=== PATIENT | female | born 1990 | race African-American/Black ===

== ENCOUNTER → 2018-07-20 | Outpatient (CLI) | payer MEDICARE, BC ==
--- NOTE | 2018-07-20 13:29 | US ---
EXAMINATION TYPE: Transabdominal DATE OF EXAM: 01/16/18 COMPARISON: NONE CLINICAL HISTORY: O30.91 Multiple gestation, first trimester, Z36.... viability EXAM PERFORMED: Transvaginal (TV) and Transabdominal (TA) EXAM MEASUREMENTS: GESTATIONAL AGE / DATING Physician Established: Not yet established Dates by LMP: (7 weeks/4 days) EDC: 03/04/19 Dates by First Scan: no prior done here Dates by Current Scan for: (7 weeks/3 days) EDC: 03/05/19 MATERNAL ANATOMY Uterus: 9.9 x 5.6 x 7.7cm Right Ovary: 2.6 x 1.0 x 1.4cm Left Ovary: 3.7 x 2.4 x 2.5cm Post CDS / Adnexa: appears wnl Presence of free fluid: no Presence of corpus luteal cyst: yes, hypoechoic area left ovary = 2.1 x 1.9 x 1.7cm GESTATION / SURVEY CRL: 1.2cm (7 weeks/3 days) Yolk Sac (normal less than 6mm): 0.3cm Heart Rate: 141 bpm Rhythm: Normal IUP: Viable IUP Date of LMP: 05/28/18 Beta HcG (if available): Not available at this time single viable IUP 7wks/3days with CRIS of 03/05/19. Corpus luteum left ovary IMPRESSION: Single viable intrauterine of 7 weeks 3 days with an EDC of 03/05/2019. Heart rate is 141 bp m.
[2018-07-20 14:13] LABS: HCT 37.4 % (34.0-46.0); HGB 11.9 gm/dL (11.4-16.0); MCH 32.7 pg (25.0-35.0); MCHC 31.7 g/dL (31.0-37.0); MCV 103.3 fL (80.0-100.0); Macrocytosis Moderate; Mean Platelet Volume 10.7; Platelet Count 205 k/uL (150-450); RBC 3.62 m/uL (3.80-5.40); RDW 15.4 % (11.5-15.5); WBC 7.4 k/uL (3.8-10.6)
[2018-07-20 15:55] LABS: Glucose 85 mg/dL (74-99)
[2018-07-20 20:42] LABS: HIV 1 AB Non-Reactive (Non-Reactive); HIV AB P24 Non-Reactive (Non-Reactive); HIV P24 AG Non-Reactive (Non-Reactive)
== END | disposition home or self-care (01) ==
LOC: RADUSWWP 12:30
PROVIDERS: ATTEND Obstetrics & Gynecology
DX: O30.91 Multiple gestation, unspecified, first trimester (principal); O26.811 Pregnancy related exhaustion and fatigue, first trimester; Z3A.01 Less than 8 weeks gestation of pregnancy
CPT/HCPCS: 36415; 76801; 76817; 82565; 82947; 85027; 86762; 86780; 86850; 86900; 86901; 87340; 87390

== ENCOUNTER 2018-09-10 23:11 | Emergency (ER) | payer MEDICARE, BC ==
[2018-09-11 01:49] LABS: Appearance,Urine Cloudy (Clear); Bilirubin,Urine Negative (Negative); Blood,Urine Negative (Negative); Color,Urine Yellow; Glucose,Urine (UA) Negative (Negative); Ketones,Urine Negative (Negative); Leukocyte Esterase,Urine Small (Negative); Mucus,Urine Rare /hpf; Nitrite,Urine Negative (Negative); PH, Urine 5.5 (5.0-8.0); Protein,Urine Negative (Negative); RBC,Urine 1 /hpf (0-5); Specific Gravity,Urine 1.018 (1.001-1.035); Squamous Epithelial Cell,Urine 4 /hpf (0-4); Urobilinogen,Urine <2.0 mg/dL (<2.0)
[2018-09-11] MEDS ORDERED: CEPHALEXIN 500MG STARTER PACK 4 CAP BTL PO STA (03:18)
--- NOTE | 2018-09-11 03:21 | ED ---
Back Pain HPI - General Chief Complaint: Back Pain/Injury Stated Complaint: back pain, 15 weeks preg Time Seen by Provider: 09/11/18 01:23 Source: patient Limitations: no limitations - History of Present Illness MD Complaint: back pain -: hour(s) Similar Symptoms Previously: No Place: home Radiation: none Severity: moderate Quality: sharp Consistency: now resolved Improves With: none Worsens With: other (Standing) Context: bending Associated Symptoms: denies other symptoms - Related Data Previous Rx's Medication Instructions Recorded Ibuprofen [Motrin] 600 mg PO Q8HR PRN #20 tab 05/24/16 Lidocaine Viscous [Xylocaine 5 ml PO Q3HR PRN #100 ml 05/24/16 Viscous 2%] Cephalexin [Keflex] 500 mg PO Q6HR #28 cap 09/11/18 Allergies Allergy/AdvReac Type Severity Reaction Status Date / Time amoxicillin trihydrate Allergy Rash/Hives Verified 09/10/18 23:22 [From Augmentin] Penicillins Allergy Anaphylaxis Verified 09/10/18 23:22 potassium clavulanate Allergy Rash/Hives Verified 09/10/18 23:22 [From Augmentin] Review of Systems ROS Statement: Those systems with pertinent positive or pertinent negative responses have been documented in the HPI. ROS Other: All systems not noted in ROS Statement are negative. Constitutional: Denies: fever, chills, weakness Respiratory: Denies: cough, dyspnea Cardiovascular: Denies: chest pain, palpitations, edema Gastrointestinal: Reports: abdominal pain (Cramping, resolved). Denies: nausea , vomiting, diarrhea, constipation Genitourinary: Reports: frequency. Denies: dysuria, hematuria Musculoskeletal: Reports: as per HPI, back pain Skin: Denies: rash Neurological: Denies: headache, weakness, numbness Past Medical History Past Medical History: No Reported History History of Any Multi-Drug Resistant Organisms: MRSA Date of last positivie culture/infection: 2011 MDRO Source:: left hip Past Surgical History: No Surgical Hx Reported Past Psychological History: No Psychological Hx Reported Smoking Status: Former smoker Past Alcohol Use History: Occasional Past Drug Use History: None Reported General Exam Limitations: no limitations General appearance: alert, in no apparent distress Head exam: Present: atraumatic, normocephalic Eye exam: Present: normal appearance. Absent: scleral icterus, conjunctival injection Neck exam: Present: normal inspection, full ROM Respiratory exam: Present: normal lung sounds bilaterally. Absent: respiratory distress, wheezes, rales, rhonchi, stridor Cardiovascular Exam: Present: regular rate, normal rhythm, normal heart sounds. Absent: systolic murmur, diastolic murmur, rubs, gallop GI/Abdominal exam: Present: soft. Absent: distended, tenderness, guarding, rebound, rigid, pulsatile mass Extremities exam: Present: normal inspection, normal capillary refill. Absent: pedal edema, calf tenderness Back exam: Present: normal inspection, paraspinal tenderness. Absent: CVA tenderness (R), CVA tenderness (L), vertebral tenderness Neurological exam: Present: alert, normal gait Skin exam: Present: warm, dry, intact, normal color. Absent: rash Course Vital Signs 09/10/18 09/11/18 23:20 03:35 Temperature 98.5 F 97.9 F Pulse Rate 79 81 Respiratory 18 19 Rate Blood Pressure 111/73 106/66 O2 Sat by Pulse 99 99 Oximetry Medical Decision Making - Lab Data Lab Results 09/11/18 Range/Units 01:30 Urine Color Yellow Urine Appearance Cloudy H (Clear) Urine pH 5.5 (5.0-8.0) Ur Specific Brandon 1.018 (1.001-1.035) Urine Protein Negative (Negative) Urine Glucose (UA) Negative (Negative) Urine Ketones Negative (Negative) Urine Blood Negative (Negative) Urine Nitrite Negative (Negative) Urine Bilirubin Negative (Negative) Urine Urobilinogen <2.0 (<2.0) mg/dL Ur Leukocyte Esterase Small H (Negative) Urine RBC 1 (0-5) /hpf Urine WBC 13 H (0-5) /hpf Ur Squamous Epith Cells 4 (0-4) /hpf Urine Mucus Rare H (None) /hpf Disposition Clinical Impression: Urinary tract infection affecting , Back pain Disposition: HOME SELF-CARE Condition: Good Instructions: Acute Low Back Pain (ED), Urinary Tract Infection in ( ED) Prescriptions: Cephalexin [Keflex] 500 mg PO Q6HR #28 cap Is patient prescribed a controlled substance at d/c from ED?: No Referrals: Radha Wiley MD [Primary Care Provider] - 1-2 days
[2018-09-11 03:42] VITALS: BP 106/66; PULSE 81; RESP 19; TEMP 97.9
== END 2018-09-11 03:36 | disposition home or self-care (01) ==
LOC: EC 23:11
DX: O23.42 Unspecified infection of urinary tract in pregnancy, second trimester (principal); O26.892 Other specified pregnancy related conditions, second trimester; M54.9 Dorsalgia, unspecified; Z3A.15 15 weeks gestation of pregnancy; Z87.891 Personal history of nicotine dependence; Z88.0 Allergy status to penicillin
CPT/HCPCS: 81001; 87086; 99283

== ENCOUNTER → 2019-01-16 | Outpatient (CLI) | payer MEDICARE ==
--- NOTE | 2019-01-16 10:41 | US ---
EXAMINATION TYPE: US OB limited DATE OF EXAM: 01/16/2019 COMPARISON: US 2018 CLINICAL HISTORY: O36.8390 Vaiable decelerations anteparium. OB limited for XOCHILT only EXAM PERFORMED: Transabdominal (TA) GESTATIONAL AGE / DATING Physician Established: (33 weeks/2 days) EDC: 03/04/2019 No growth performed on today?s study per ordering physician SURVEY XOCHILT: 14.0 cm Normal HEART RATE: 164 bpm RHYTHM: Normal IMPRESSION: Limited exam performed demonstrated an XOCHILT level 14 cm.
== END ==
LOC: RADUSWWP 10:13
PROVIDERS: ATTEND Obstetrics & Gynecology
DX: O36.8390 Maternal care for abnormalities of the fetal heart rate or rhythm, unspecified trimester, not applicable or unspecified (principal); Z3A.33 33 weeks gestation of pregnancy
CPT/HCPCS: 76815

== ENCOUNTER 2019-02-02 21:21 | Outpatient (CLI) | payer MEDICARE ==
[2019-02-02 21:58] VITALS: BP 118/75; PULSE 87; RESP 16; TEMP 97.3
--- NOTE | 2019-02-03 06:07 | P.MSEPDOC ---
Presenting Problems - Arrival Data Date of Arrival on Unit: 02/02/19 Time of Arrival on Unit: 21:20 Mode of Transport: Wheelchair - Complaint OB-Reason for Admission/Chief Complaint: Possible Onset of Labor Comment: back pain and vaginal pain x 2 days Medical History - Information : 1 Para: 0 Term: 0 : 0 Abortions: Spontaneous or Elective: 0 Number of Living Children: 0 - Gestational Age Gestational Age by CRIS (wks/days): 35 Weeks and 5 Days Review of Systems - Review of Systems Constitutional: No problems Breast: No problems ENT: No problems Cardiovascular: No problems Respiratory: No problems Gastrointestinal: No problems Genitourinary: No problems Musculoskeletal: No problems Neurological: No problems Skin: No problems Vital Signs - Temperature Temperature: 97.3 F Temperature Source: Temporal Artery Scan - Pulse Right Brachial Pulse Rate: 87 Pulse Assessment Method: Auscultation - Respirations Respiratory Rate: 16 Oxygen Delivery Method: Room Air O2 Sat by Pulse Oximetry: 98 - Blood Pressure Right Arm Blood Pressure: 118/75 Blood Pressure Mean: 89 Blood Pressure Source: Automatic Cuff Medical Screen Scoring (Pre) - Cervical Exam Dilation: 1-3 cm = 1 Membranes: Intact - Uterine Contractions Frequency: > 5 minutes apart = 1 Duration: > 40 seconds = 2 Intensity: N/A - Maternal Vital Signs Maternal Temperature: N/A Signs of Preeclampsia: N/A Maternal Respirations: N/A - Assessment Baseline FHR: 130 Heart Rate - NICHD Category: Category I (Normal) = 0 NST: Reactive Position: N/A Station: N/A - Total Score Total Score (Pre): 4 - Level of Risk Level of Risk: Low (0-5) Medical Screen Scoring (Post) - Cervical Exam Dilation: 1-3 cm = 1 Membranes: Intact - Uterine Contractions Frequency: > 5 minutes apart = 1 Duration: > 40 seconds = 2 - Assessment Heart Rate: 135 Heart Rate - NICHD Category: Category I (Normal) = 0 NST: Reactive - Total Score Total Score (Post): 4 - Post Treatment Level of Risk Post Treatment Level of Risk: Low (0-5) Physician Notification (Post) - Physician Notified Physician Notified Date: 02/02/19 Physician Notified Time: 22:54 Spoke With: Jaime Reagan Order Received: Yes (discharge with instruction) - Notification Comment Comment: no cervical change, reactive, mild contractions, has appt 02/05 Disposition - Disposition OB Disposition: Discharge to home, Written follow up instructions reviewed Discharge Date: 02/02/19 Discharge Time: 23:00 I agree with the RN Medical Screening Exam: Yes Risk & Benefit of care provided described in d/c instruction: Yes Diagnosis: FALSE LABOR BEFORE 37 COMPLETED WEEKS OF GEST, THIRD TRI
== END 2019-02-02 23:00 | disposition home or self-care (01) ==
LOC: FBPOP 21:21
PROVIDERS: ATTEND Obstetrics & Gynecology
DX: O47.03 False labor before 37 completed weeks of gestation, third trimester (principal); Z3A.35 35 weeks gestation of pregnancy
CPT/HCPCS: 59025; 99213

== ENCOUNTER 2019-02-18 14:12 | Outpatient (CLI) | payer MEDICARE ==
[2019-02-18 14:44] VITALS: BP 128/62; PULSE 91; RESP 18; TEMP 97.5
--- NOTE | 2019-02-18 21:03 | P.MSEPDOC ---
Presenting Problems - Arrival Data Date of Arrival on Unit: 02/18/19 Time of Arrival on Unit: 14:41 Mode of Transport: Ambulatory - Complaint OB-Reason for Admission/Chief Complaint: Possible Onset of Labor Medical History - Information : 1 Para: 0 Term: 0 : 0 Abortions: Spontaneous or Elective: 0 Number of Living Children: 0 - Gestational Age Gestational Age by CRIS (wks/days): 38 Weeks and 0 Days Review of Systems - Review of Systems Constitutional: No problems Breast: No problems ENT: No problems Cardiovascular: No problems Respiratory: No problems Gastrointestinal: No problems Genitourinary: No problems Musculoskeletal: No problems Neurological: No problems Skin: No problems Vital Signs - Temperature Temperature: 97.5 F Temperature Source: Temporal Artery Scan - Pulse Pulse Oximetery Pulse Rate: 91 Pulse Assessment Method: Pulse Oximetry - Respirations Respiratory Rate: 18 O2 Sat by Pulse Oximetry: 97 - Blood Pressure Right Arm Sitting Blood Pressure: 128/62 Blood Pressure Mean: 84 Blood Pressure Source: Automatic Cuff Medical Screen Scoring (Pre) - Cervical Exam Dilation: 1-3 cm = 1 Membranes: Intact - Uterine Contractions Frequency: > or = 36 weeks =2 Duration: > 40 seconds = 2 Intensity: N/A - Maternal Vital Signs Maternal Temperature: N/A Maternal Blood Pressure: N/A Signs of Preeclampsia: N/A Maternal Respirations: N/A - Pain Assessment Pain Location and Character: Abdomen Pain Scale Used: Numeric (1 - 10) Pain Intensity: 7 Pain Description: *Acute, Cramping Pain Radiation Location: back Pain Frequency: Intermittent Pain Duration: 1 Pain Duration Units: Minutes Pain Behavior: Facial Grimacing Pain Aggravating Factors: Contractions Non-Pharmacological Interventions: Emotional/Spiritual Support, Environmental Control, Reduce Environmental Stimuli - Maternal Trauma Maternal Trauma: N/A - Assessment Baseline FHR: 150 Heart Rate - NICHD Category: Category I (Normal) = 0 NST: Reactive Position: N/A Station: N/A - Total Score Total Score (Pre): 5 - Level of Risk Level of Risk: Low (0-5) Physician Notification (Post) - Physician Notified Physician Notified Date: 02/18/19 Physician Notified Time: 15:45 Physician/Practitioner Notified:: Dr Sandoval New Order Received: Yes Disposition - Disposition OB Disposition: Discharge to home, Written follow up instructions reviewed Discharge Date: 02/18/19 Discharge Time: 15:50 I agree with the RN Medical Screening Exam: Yes Risk & Benefit of care provided described in d/c instruction: Yes Diagnosis: FALSE LABOR AT OR AFTER 37 COMPLETED WEEKS OF GESTATION
== END 2019-02-18 15:50 | disposition home or self-care (01) ==
LOC: FBPOP 14:12
PROVIDERS: ATTEND Obstetrics & Gynecology
DX: O47.1 False labor at or after 37 completed weeks of gestation (principal); Z3A.38 38 weeks gestation of pregnancy
CPT/HCPCS: 59025; 84112; 99213

== ENCOUNTER 2019-02-18 21:07 | Outpatient (CLI) | payer MEDICARE ==
[2019-02-18 21:18] VITALS: BP 126/85; PULSE 102; RESP 16; TEMP 97
--- NOTE | 2019-02-19 07:53 | P.MSEPDOC ---
Presenting Problems - Arrival Data Date of Arrival on Unit: 02/18/19 Time of Arrival on Unit: 21:07 Mode of Transport: Wheelchair - Complaint OB-Reason for Admission/Chief Complaint: Possible Onset of Labor Comment: cntrx all day. in triage earlier Medical History - Information : 1 Para: 0 Term: 0 : 0 Abortions: Spontaneous or Elective: 0 Number of Living Children: 0 - Gestational Age Gestational Age by CRIS (wks/days): 38 Weeks and 0 Days Review of Systems - Review of Systems Constitutional: No problems Breast: No problems ENT: No problems Cardiovascular: No problems Respiratory: No problems Gastrointestinal: No problems Genitourinary: No problems Musculoskeletal: No problems Neurological: No problems Skin: No problems Vital Signs - Temperature Temperature: 97.0 F Temperature Source: Temporal Artery Scan - Pulse Right Brachial Pulse Rate: 102 Pulse Assessment Method: Pulse Oximetry - Respirations Respiratory Rate: 16 O2 Sat by Pulse Oximetry: 99 - Blood Pressure Right Arm Blood Pressure: 126/85 Blood Pressure Mean: 98 Blood Pressure Source: Automatic Cuff Medical Screen Scoring (Pre) - Cervical Exam Dilation: 1-3 cm = 1 Effacement: More than 50% = 2 Membranes: Intact - Uterine Contractions Frequency: > or = 36 weeks =2 Duration: > 40 seconds = 2 Intensity: N/A - Maternal Vital Signs Maternal Temperature: N/A Maternal Blood Pressure: N/A Signs of Preeclampsia: N/A Maternal Respirations: N/A - Assessment Baseline FHR: 135 Heart Rate - NICHD Category: Category I (Normal) = 0 NST: Reactive Position: N/A - Total Score Total Score (Pre): 7 - Level of Risk Level of Risk: Medium (6-9) Medical Screen Scoring (Post) - Cervical Exam Dilation: 1-3 cm = 1 Effacement: More than 50% = 2 Membranes: Intact - Uterine Contractions Frequency: N/A Duration: > 40 seconds = 2 Intensity: N/A - Assessment Heart Rate: 135 Heart Rate - NICHD Category: Category I (Normal) = 0 NST: Reactive Position: N/A Station: N/A - Total Score Total Score (Post): 5 - Post Treatment Level of Risk Post Treatment Level of Risk: Low (0-5) Physician Notification (Post) - Physician Notified Physician Notified Date: 02/18/19 Physician Notified Time: 22:31 Physician/Practitioner Notified:: Dr Sandoval - Notification Comment Comment: Reported on pts c/o cntrx worsening since being here in triage earlier. Reported on fhts, cntrx pattern, unchanged SVE. Orders to d/c home with instructions. Return with new or worsening sx. Keep scheduled appt in office on Monday. Disposition - Disposition OB Disposition: Discharge to home Discharge Date: 02/18/19 Discharge Time: 22:40 I agree with the RN Medical Screening Exam: Yes Risk & Benefit of care provided described in d/c instruction: Yes Diagnosis: FALSE LABOR AT OR AFTER 37 COMPLETED WEEKS OF GESTATION
== END 2019-02-18 22:40 | disposition home or self-care (01) ==
LOC: FBPOP 21:07
PROVIDERS: ATTEND Obstetrics & Gynecology
DX: O47.1 False labor at or after 37 completed weeks of gestation (principal); Z3A.38 38 weeks gestation of pregnancy
CPT/HCPCS: 59025; 99213

== ENCOUNTER 2019-02-19 10:37 | Outpatient (CLI) | payer MEDICARE ==
[2019-02-19 11:01] VITALS: BP 109/80; PULSE 89; RESP 16; TEMP 97.7
--- NOTE | 2019-02-19 18:04 | P.MSEPDOC ---
Presenting Problems - Arrival Data Date of Arrival on Unit: 02/19/19 Time of Arrival on Unit: 10:37 Mode of Transport: Ambulatory - Complaint OB-Reason for Admission/Chief Complaint: Possible Onset of Labor Comment: ctx since yesterday morn, lost mucus plug Medical History - Information : 1 Para: 0 Term: 0 : 0 Abortions: Spontaneous or Elective: 0 Number of Living Children: 0 - Gestational Age Gestational Age by CRIS (wks/days): 38 Weeks and 1 Days Review of Systems - Review of Systems Constitutional: No problems Breast: No problems ENT: No problems Cardiovascular: No problems Respiratory: No problems Gastrointestinal: No problems Genitourinary: No problems Musculoskeletal: No problems Neurological: No problems Skin: No problems Vital Signs - Temperature Temperature: 97.7 F Temperature Source: Temporal Artery Scan - Pulse Right Sitting Pulse Rate: 89 Pulse Assessment Method: Automatic Cuff - Respirations Respiratory Rate: 16 Oxygen Delivery Method: Room Air - Blood Pressure Right Arm Sitting Blood Pressure: 109/80 Blood Pressure Mean: 89 Blood Pressure Source: Automatic Cuff Medical Screen Scoring (Pre) - Cervical Exam Dilation: 1-3 cm = 1 Membranes: Intact - Uterine Contractions Frequency: > 5 minutes apart = 1 Duration: > 40 seconds = 2 - Maternal Vital Signs Maternal Temperature: N/A Maternal Blood Pressure: N/A Signs of Preeclampsia: N/A Maternal Respirations: N/A - Pain Assessment Pain Location and Character: Abdomen Pain Scale Used: Numeric (1 - 10) Pain Intensity: 6 Pain Description: *Acute, Cramping Pain Frequency: Intermittent Pain Duration: 2 Pain Duration Units: Hours Pain Behavior: None Exhibited - Assessment Baseline FHR: 140 Heart Rate - NICHD Category: Category I (Normal) = 0 NST: Reactive Position: N/A Station: N/A - Total Score Total Score (Pre): 4 - Level of Risk Level of Risk: Low (0-5) Medical Screen Scoring (Post) - Cervical Exam Dilation: 1-3 cm = 1 Membranes: Intact - Uterine Contractions Frequency: > 5 minutes apart = 1 - Assessment Heart Rate: 125 Heart Rate - NICHD Category: Category II (Indeterminate) = 3 NST: Reactive Position: N/A Station: N/A - Total Score Total Score (Post): 5 - Post Treatment Level of Risk Post Treatment Level of Risk: Low (0-5) Physician Notification (Post) - Physician Notified Physician Notified Date: 02/19/19 Physician Notified Time: 12:07 Spoke With: Leonila Reagan Order Received: Yes (discharge with instruction) Disposition - Disposition OB Disposition: Discharge to home, Written follow up instructions reviewed Discharge Date: 02/19/19 Discharge Time: 12:15 I agree with the RN Medical Screening Exam: Yes Risk & Benefit of care provided described in d/c instruction: Yes Diagnosis: FALSE LABOR AT OR AFTER 37 COMPLETED WEEKS OF GESTATION
== END 2019-02-19 12:15 | disposition home or self-care (01) ==
LOC: FBPOP 10:37
PROVIDERS: ATTEND Obstetrics & Gynecology
DX: O47.1 False labor at or after 37 completed weeks of gestation (principal); Z3A.38 38 weeks gestation of pregnancy
CPT/HCPCS: 59025; 99213

== ENCOUNTER 2019-02-22 10:16 | Inpatient (IN) | payer MEDICARE ==
[2019-02-22] MEDS ORDERED: OXYTOCIN 10 UNIT/ML 1 ML VIAL IM PRN (11:01)
[2019-02-22] MEDS ORDERED: CARBOPROST TROMETHAMINE 250 MCG/ML 1 ML AMP IM PRN (11:01)
[2019-02-22] MEDS ORDERED: TERBUTALINE 1 MG/ML VIAL SQ PRN (11:01)
[2019-02-22] MEDS ORDERED: LIDOCAINE 0.5% (PF) 5 MG/ML (50 ML SDV) SQ PRN (11:01)
[2019-02-22] MEDS ORDERED: METHYLERGONOVINE 0.2 MG/ML 1 ML AMP IM PRN (11:01)
[2019-02-22] MEDS ORDERED: BUTORPHANOL 1 MG/ML 1 ML VIAL IV PRN (11:11)
[2019-02-22] MEDS ORDERED: OXYTOCIN 30 UNITS/500 ML NS 30 UNIT in SALINE 1 500ML.BAG IV SCH (11:15)
[2019-02-22] MEDS: LACTATED RINGERS 1,000 ML IV SCH ×3 (11:50→23:34)
[2019-02-22 11:51] LABS: Basophils % (A) 0 %; Eosinophils # (A) 0.1 k/uL (0-0.7); Eosinophils % (A) 2 %; HCT 35.3 % (34.0-46.0); HGB 11.6 gm/dL (11.4-16.0); Lymphocytes # (A) 1.2 k/uL (1.0-4.8); Lymphocytes % (A) 16 %; MCHC 32.7 g/dL (31.0-37.0); MCV 97.7 fL (80.0-100.0); Mean Platelet Volume 10.2; Monocytes # (A) 0.4 k/uL (0-1.0); Monocytes % (A) 6 %; Neutrophils # (A) 5.4 k/uL (1.3-7.7); Neutrophils % (A) 73 %; Platelet Count 163 k/uL (150-450); RBC 3.62 m/uL (3.80-5.40); RDW 12.6 % (11.5-15.5); WBC 7.3 k/uL (3.8-10.6)
[2019-02-22 11:56] VITALS: BMI 31.4
--- NOTE | 2019-02-22 13:28 | P.HPOB ---
History of Present Illness H&P Date: 02/22/19 Chief Complaint: spontaneous rupture of membranes This is a 28 year old female 1 para 0 with an estimated date of confinement of 03/04/2019, estimated gestational age of 38-4/7 weeks, who presents to labor and delivery with complaints of spontaneous rupture membranes at approximately 10 AM this morning. She denies any regular contractions. Her course has been essentially uncomplicated. labs: GC/Chlamydia/Trichomonas-negative Random glucose-85 Hemoglobin-11.9 Hepatitis B surface antigen-negative nonreactive Rubella-immune Syphilis antibody-negative HIV-nonreactive Blood type-A+ Antibody screen-negative Obstetrical ultrasound-normal anatomy One hour Glucola-86 Group B streptococcus-negative Obstetrical history: Gynecologic history: History of chlamydia treated year or 2 ago. Social history: She is single and works in a factory. Review of Systems Constitutional: Denies chills, Denies fever Eyes: denies blurred vision, denies pain Ears, nose, mouth and throat: Denies headache, Denies sore throat Cardiovascular: Denies chest pain, Denies shortness of breath Respiratory: Denies cough Gastrointestinal: Reports abdominal pain (irregular contractions) Genitourinary: Reports pelvic pain, Reports Musculoskeletal: Reports low back pain Integumentary: Denies pruritus, Denies rash Neurological: Denies numbness, Denies weakness Psychiatric: Denies anxiety, Denies depression Past Medical History Past Medical History: No Reported History History of Any Multi-Drug Resistant Organisms: MRSA Date of last positivie culture/infection: 2011 MDRO Source:: left hip Past Surgical History: No Surgical Hx Reported Past Anesthesia/Blood Transfusion Reactions: No Reported Reaction Past Psychological History: No Psychological Hx Reported Smoking Status: Never smoker Past Alcohol Use History: None Reported, Occasional Past Drug Use History: None Reported - Past Family History Mother Family Medical History: No Reported History Medications and Allergies Home Medications Medication Instructions Recorded Confirmed Type Pnv No.95/Ferrous Fum/Folic AC 1 each PO DAILY 02/02/19 02/19/19 History [ Multivitamin Tablet] Allergies Allergy/AdvReac Type Severity Reaction Status Date / Time amoxicillin trihydrate Allergy Rash/Hives Verified 02/22/19 10:34 [From Augmentin] Penicillins Allergy Anaphylaxis Verified 02/22/19 10:34 potassium clavulanate Allergy Rash/Hives Verified 02/22/19 10:34 [From Augmentin] Exam Osteopathic Statement: *. No significant issues noted on an osteopathic structural exam other than those noted in the History and Physical/Consult. Vital Signs Temp Pulse Resp BP 02/22/19 11:52 98.7 F 93 16 130/87 02/22/19 11:00 98.7 F 93 16 130/87 Intake and Output 02/21/19 02/22/19 02/22/19 22:59 06:59 14:59 Other: Weight 85.729 kg HEENT: Within normal limits Heart: Regular rate and rhythm Lungs: Clear to auscultation bilaterally Abdomen: Cervix: On admission is 1 cm/60%/-2 station with positive amnisure and clear fluid noted. heart tones: Category 1 tracing Contractions: Irregular Extremities: Negative Homans Results Result Diagrams: 02/22/19 11:37 Abnormal Lab Results - Last 24 Hours (Table) 02/22/19 Range/Units 11:37 RBC 3.62 L (3.80-5.40) m/uL Assessment and Plan (1) 38 weeks gestation of Current Visit: Yes Status: Acute Code(s): Z3A.38 - 38 WEEKS GESTATION OF SNOMED Code(s): 32990826 (2) Labor without complication Current Visit: Yes Status: Acute Code(s): O80 - ENCOUNTER FOR FULL-TERM UNCOMPLICATED DELIVERY SNOMED Code(s): 85910436 Plan: Proceed with oxytocin augmentation of labor. Epidural anesthesia when desired. Expectant management.
--- NOTE | 2019-02-22 13:30 | P.MSEPDOC ---
Presenting Problems - Arrival Data Date of Arrival on Unit: 02/22/19 Time of Arrival on Unit: 11:00 Mode of Transport: Ambulatory - Complaint OB-Reason for Admission/Chief Complaint: Observation/Evaluation Medical History - Information : 1 Para: 0 Term: 0 : 0 Abortions: Spontaneous or Elective: 0 Number of Living Children: 0 - Gestational Age Gestational Age by CRIS (wks/days): 38 Weeks and 4 Days Review of Systems - Review of Systems Constitutional: No problems Breast: No problems ENT: No problems Cardiovascular: No problems Respiratory: No problems Gastrointestinal: No problems Genitourinary: No problems Musculoskeletal: No problems Neurological: No problems Skin: No problems Vital Signs - Temperature Temperature: 98.7 F Temperature Source: Oral - Pulse Right Sitting Pulse Rate: 93 Pulse Assessment Method: Automatic Cuff - Respirations Respiratory Rate: 16 Oxygen Delivery Method: Room Air - Blood Pressure Right Arm Blood Pressure: 130/87 Blood Pressure Mean: 101 Blood Pressure Source: Automatic Cuff Medical Screen Scoring (Pre) - Cervical Exam Dilation: 1-3 cm = 1 Effacement: More than 50% = 2 Membranes: Ruptured = 3 - Uterine Contractions Frequency: > 5 minutes apart = 1 Duration: > 40 seconds = 2 Intensity: N/A - Maternal Vital Signs Maternal Temperature: N/A Maternal Blood Pressure: N/A Signs of Preeclampsia: N/A Maternal Respirations: N/A - Pain Assessment Pain Location and Character: Abdomen Pain Scale Used: Numeric (1 - 10) Pain Intensity: 3 Pain Management Goal: 0 Pain Description: *Acute Pain Frequency: Intermittent Pain Duration Units: Minutes Pain Behavior: None Exhibited Pain Aggravating Factors: Contractions - Maternal Trauma Maternal Trauma: N/A - Assessment Baseline FHR: 150 Heart Rate - NICHD Category: Category I (Normal) = 0 NST: Reactive Position: N/A Station: N/A - Total Score Total Score (Pre): 9 - Level of Risk Level of Risk: Medium (6-9) Physician Notification (Pre) - Physician Notified Physician Notified Date: 02/22/19 Physician Notified Time: 11:00 Physician/Practitioner Notifed:: Jaime Reagan Order Received: Yes (admit for labor) Disposition - Disposition OB Disposition: Admit I agree with the RN Medical Screening Exam: Yes Risk & Benefit of care provided described in d/c instruction: Yes Diagnosis: ENCOUNTER FOR FULL-TERM UNCOMPLICATED DELIVERY
[2019-02-22] MEDS ORDERED: ROPIVACAINE 5MG/ML 20ML VIAL ONE (17:14)
[2019-02-22] MEDS ORDERED: SODIUM CHLORIDE 0.9% 100 ML BAG ONE (17:14)
[2019-02-22] MEDS ORDERED: fentaNYL (PF) 50 MCG/ML 5 ML AMP ONE (17:14)
[2019-02-22] MEDS: CLINDAMYCIN 900 MG in DEXTROSE 5% IN WATER 50 ML IVPB SCH ×2 (23:57)
[2019-02-23] MEDS ORDERED: ONDANSETRON 4 MG/2 ML VIAL IVP STA (01:15)
--- NOTE | 2019-02-23 08:04 | P.PROBDLV ---
Vaginal Delivery Note - . Vaginal Delivery Note: The patient progressed to complete dilation after oxytocin augmentation of labor. She did receive epidural anesthesia. She had a rather slow progression of labor and did receive antibiotic prophylaxis secondary to prolonged rupture of membranes. Was reaching complete dilation, she pushed for a rather short period of time and 's head came to a crown. With one further push, the infant's head delivered across the perineum and a left occiput anterior lie followed by the anterior shoulder. Nose and mouth were bulb suctioned at the perineum. With one further push, the remainder the easily delivered and was placed on mother's abdomen. Cord was clamped and cut and was taken to warmer for evaluation. A viable female infant was noted with scores of 8 at 1 minute and 9 at 5 minutes and weight was 6 lbs. 12 oz. Placenta delivered shortly thereafter, intact, with a three-vessel cord. Uterus contracted well after oxytocin was given and uterine massage was carried out. Inspection of the perineum revealed no perineal lacerations. Estimated blood loss is approximately 150 mL's. Both mother and infant are in stable condition.
[2019-02-23] MEDS ORDERED: WITCH HAZEL 1 EACH MED..PAD TOPICAL PRN (08:18)
[2019-02-23] MEDS ORDERED: SIMETHICONE 80 MG CHEWABLE PO PRN (08:18)
[2019-02-23] MEDS ORDERED: OXYTOCIN 20 UNITS/1000 ML NS 1,000 ML IV SCH (08:18)
[2019-02-23] MEDS ORDERED: HYDROCORTISONE 2.5% RECTAL CREAM 30 GM TUBE RECTAL PRN (08:18)
[2019-02-23] MEDS ORDERED: diphenhydrAMINE 50 MG/ML 1 ML VIAL IVP PRN ×2 (08:18)
[2019-02-23] MEDS ORDERED: BENZOCAINE/MENTHOL SPRAY 1 GM/SPRAY AEROSOL TOPICAL PRN (08:18)
[2019-02-23] MEDS ORDERED: diphenhydrAMINE 50 MG CAP PO PRN (08:18)
[2019-02-23] MEDS ORDERED: ACETAMINOPHEN TAB 325 MG TAB PO PRN (08:18)
[2019-02-23] MEDS ORDERED: ZOLPIDEM 5 MG TAB PO PRN (08:18)
[2019-02-23] MEDS ORDERED: LANOLIN CREAM 5 GM TUBE TOPICAL PRN (08:18)
[2019-02-23] MEDS ORDERED: diphenhydrAMINE 25 MG CAP PO PRN (08:18)
[2019-02-23] MEDS: IBUPROFEN 600 MG TAB PO PRN ×2 (08:26→19:41)
[2019-02-23 08:59] LABS: Basophils % (A) 0 %; Eosinophils # (A) 0.1 k/uL (0-0.7); Eosinophils % (A) 0 %; HCT 35.3 % (34.0-46.0); HGB 11.5 gm/dL (11.4-16.0); Lymphocytes # (A) 0.7 k/uL (1.0-4.8); Lymphocytes % (A) 5 %; MCH 32.3 pg (25.0-35.0); MCHC 32.5 g/dL (31.0-37.0); MCV 99.3 fL (80.0-100.0); Mean Platelet Volume 10.3; Monocytes # (A) 0.6 k/uL (0-1.0); Monocytes % (A) 5 %; Neutrophils # (A) 11.3 k/uL (1.3-7.7); Neutrophils % (A) 87 %; Platelet Count 151 k/uL (150-450); RBC 3.56 m/uL (3.80-5.40); RDW 13.2 % (11.5-15.5)
[2019-02-23] MEDS: CLINDAMYCIN 900 MG in DEXTROSE 5% IN WATER 50 ML IVPB SCH ×2 (09:53)
[2019-02-23] MEDS: SENNOSIDES-DOCUSATE SODIUM 1 EACH TAB PO SCH ×2 (09:53→19:42)
[2019-02-23 23:45] VITALS: RESP 16
--- NOTE | 2019-02-24 05:13 | P.PNOBGVD ---
Subjective - Subjective Principal diagnosis: Status post vaginal delivery day #1 Interval history: Patient is doing well. She is breast-feeding. Lochia is decreasing. Pain is fairly well controlled. Patient reports: Reports appetite normal, Reports voiding normally, Reports pain well controlled, Reports ambulating normally : doing well, nursing well Objective - Latest Vital Signs Latest vital signs: Vital Signs Temp Pulse Resp BP 02/23/19 23:44 97.7 F 69 16 126/54 02/23/19 19:58 97.8 F 85 18 123/86 02/23/19 16:00 98.3 F 72 16 126/72 02/23/19 12:00 98.0 F 66 16 118/74 02/23/19 10:04 98.0 F 89 16 144/84 02/23/19 09:34 85 16 134/83 02/23/19 09:04 96 16 136/73 02/23/19 08:49 89 16 142/83 02/23/19 08:34 97 16 117/93 02/23/19 08:19 97 16 117/93 02/23/19 08:04 97.9 F 110 H 16 115/72 Intake and Output 02/23/19 02/23/19 02/24/19 14:59 22:59 06:59 Intake Total 600 Output Total 750 Balance -750 600 Intake: Oral 600 Output: Urine 750 Other: # Voids 1 1 2 - Exam Extremities: Present: normal Abdomen: Present: normal appearance, soft. Absent: distention, tenderness Uterus: Present: normal, firm. Absent: tenderness - Labs Labs: Abnormal Lab Results - Last 24 Hours (Table) 02/23/19 Range/Units 08:31 WBC 13.0 H (3.8-10.6) k/uL RBC 3.56 L (3.80-5.40) m/uL Neutrophils # 11.3 H (1.3-7.7) k/uL Lymphocytes # 0.7 L (1.0-4.8) k/uL Assessment and Plan Assessment: Status post vaginal delivery day #1 (1) 38 weeks gestation of Current Visit: Yes Status: Acute Code(s): Z3A.38 - 38 WEEKS GESTATION OF SNOMED Code(s): 52941892 (2) Labor without complication Current Visit: Yes Status: Acute Code(s): O80 - ENCOUNTER FOR FULL-TERM UNCOMPLICATED DELIVERY SNOMED Code(s): 99307205 Plan: Will continue with care today. Anticipate discharge home tomorrow. Baby does need to stay 1 more day secondary to prolonged rupture of membranes.
[2019-02-24] MEDS: SENNOSIDES-DOCUSATE SODIUM 1 EACH TAB PO SCH (21:44)
[2019-02-24] MEDS: LACTATED RINGERS 1,000 ML IV SCH (21:45)
[2019-02-25] MEDS: IBUPROFEN 600 MG TAB PO PRN (06:15)
--- NOTE | 2019-02-25 08:11 | P.DS ---
Providers Date of admission: 02/22/19 10:50 Expected date of discharge: 02/25/19 Attending physician: Mariela Sandoval Primary care physician: Stated None - Discharge Diagnosis(es) (1) 38 weeks gestation of Current Visit: Yes Status: Acute (2) Labor without complication Current Visit: Yes Status: Acute Hospital Course: This is a 28-year-old female 1 para 0 who presented at 38-5/7 weeks with spontaneous rupture of membranes. She underwent oxytocin augmentation of labor and did deliver a viable female on 02/23/2019 with scores of 8 at 1 minute and 9 at 5 minutes and infant weight of 6 lbs. 12 oz. She did receive antibiotics while in labor due to prolonged rupture of membranes. Her course has been uncomplicated. Lochia is decreasing. Pain is well- controlled with ibuprofen. She is breast-feeding. Vital signs are stable. Abdomen is soft with fundus firm and nontender. Extremities show negative Homans. Impression is status post vaginal delivery day #2. Plan is to discharge home today. Routine instructions are given. She will be given a prescription for ibuprofen and a breast pump. She is advised follow- up in the office in 6 weeks for check. She is advised to call the office if she has any further questions or concerns prior to her appointment time. Procedures: Oxytocin augmentation of labor Spontaneous vaginal delivery of a viable female on 02/23/2019 Patient Condition at Discharge: Stable Plan - Discharge Summary New Discharge Prescriptions: New Ibuprofen [Motrin] 600 mg PO Q6HR PRN #60 tab PRN Reason: Mild Pain Or Fever >= 100.5 Continue Pnv No.95/Ferrous Fum/Folic AC [ Multivitamin Tablet] 1 each PO DAILY Discharge Medication List Pnv No.95/Ferrous Fum/Folic AC [ Multivitamin Tablet] 1 each PO DAILY 02/02/19 [History] Ibuprofen [Motrin] 600 mg PO Q6HR PRN #60 tab 02/25/19 [Rx] Follow up Appointment(s)/Referral(s): Mariela Sandoval DO [Doctor of Osteopathic Medicine] - 6 Weeks Activity/Diet/Wound Care/Special Instructions: Instructions 1. Do not begin any exercise program for 3 weeks. 2. Do not resume sexual relations for 3 weeks or longer if uncomfortable. 3. You may take tub baths or showers at any time. 4. You may use tampons if desired after 3 weeks. 5. Keep the area of episiotomy (stitches) clean and dry. 6. If you are not nursing, wear a good fitting, supportive bra during the day and limit fluid intake for at least 1 week to prevent breast engorgement. 7. Call the office, [phone], within the next week to make appointment for your 6 week checkup if it has not already been made. 8. Report any of the following occurrences to the doctor promptly: a. Heavy, excessive bleeding b. Chills, fever c. Burning or frequency of urination d. Pain or redness and breasts if nursing e. Increasing pain or swelling in episiotomy (stitches). In addition to the above instructions, the following additional should be followed: 1. No heavy lifting or straining (exercising) until after 6 week checkup. 2. Keep abdominal incision clean and dry: You may wear a dressing if more comfortable. 3. Make office appointment for 10 days after going home or as instructed by her doctor. Discharge Disposition: HOME SELF-CARE
[2019-02-25 08:47] VITALS: BP 138/69; PULSE 72; TEMP 98.8
[2019-02-25] MEDS: SENNOSIDES-DOCUSATE SODIUM 1 EACH TAB PO SCH (08:47)
== END 2019-02-25 11:45 | disposition home or self-care (01) | DRG 807 ==
LOC: FBPOP 10:16 → 4FBP 10:50
PROVIDERS: ADMIT Obstetrics & Gynecology; ATTEND Obstetrics & Gynecology
PROC: 10E0XZZ Delivery of Products of Conception, External Approach (ICD-10-PCS; principal; 2019-02-23)
DX: O42.92 Full-term premature rupture of membranes, unspecified as to length of time between rupture and onset of labor (principal); Z37.0 Single live birth; Z3A.38 38 weeks gestation of pregnancy; Z86.14 Personal history of Methicillin resistant Staphylococcus aureus infection; Z86.19 Personal history of other infectious and parasitic diseases; Z88.0 Allergy status to penicillin
CPT/HCPCS: 59025; 84112; 85025; 86850; 86900; 86901; 88307; 99213

== ENCOUNTER 2019-08-12 08:47 | Emergency (ER) | payer BC, MEDICARE ==
[2019-08-12 09:02] VITALS: BP 127/72; PULSE 72; RESP 18; TEMP 97.9
[2019-08-12] MEDS ORDERED: IBUPROFEN 600 MG STARTER PACK 4 TAB BTL PO STA (09:17)
[2019-08-12] MEDS ORDERED: ACETAMINOPHEN TAB 500 MG TAB PO STA (09:17)
--- NOTE | 2019-08-12 09:22 | ED ---
URI HPI - General Chief Complaint: Upper Respiratory Infection Stated Complaint: POSS FLU Time Seen by Provider: 08/12/19 09:04 Source: patient, RN notes reviewed, old records reviewed Mode of arrival: ambulatory Limitations: no limitations - History of Present Illness Initial Comments: Patient is a 28-year-old female, she presents emergency department today for evaluation for chief complaint of cough congestion for the past 2 days. She reports that her daughter's been sick for the past week as well. She believes that she's been passing it back and forth between family members and coworkers of upper respiratory infection. She is concerned for possible flu. She states she's been having fevers and chills the night. Her cough has been relatively dry nonproductive. She was a generalized bodyaches. Patient has already vaccines. Otherwise no significant past medical history. - Related Data Previous Rx's Medication Instructions Recorded Azithromycin [Zithromax Z-pack] 0 mg PO DIRECTED #6 tab 08/12/19 Fluticasone Propionate [Flonase 1 spray EA NOSTRIL TID #9.9 ml 08/12/19 Allergy Relief] Ibuprofen [Motrin] 600 mg PO Q6HR PRN #20 tab 08/12/19 Allergies Allergy/AdvReac Type Severity Reaction Status Date / Time amoxicillin trihydrate Allergy Rash/Hives Verified 08/12/19 09:20 [From Augmentin] Penicillins Allergy Anaphylaxis Verified 08/12/19 09:20 potassium clavulanate Allergy Rash/Hives Verified 08/12/19 09:20 [From Augmentin] Review of Systems ROS Statement: Those systems with pertinent positive or pertinent negative responses have been documented in the HPI. ROS Other: All systems not noted in ROS Statement are negative. Past Medical History Past Medical History: No Reported History History of Any Multi-Drug Resistant Organisms: MRSA Date of last positivie culture/infection: 2011 MDRO Source:: left hip Past Surgical History: No Surgical Hx Reported Past Anesthesia/Blood Transfusion Reactions: No Reported Reaction Past Psychological History: Anxiety, Depression Smoking Status: Current some day smoker Past Alcohol Use History: Occasional Past Drug Use History: None Reported - Past Family History Mother Family Medical History: No Reported History General Exam - General Exam Comments Initial Comments: 28-year-old female. Alert and oriented. No significant distress. Limitations: no limitations General appearance: alert, in no apparent distress Head exam: Present: atraumatic, normocephalic, normal inspection Eye exam: Present: normal appearance ENT exam: Present: normal exam, mucous membranes moist Neck exam: Present: normal inspection. Absent: tenderness, meningismus, lymphadenopathy Respiratory exam: Present: normal lung sounds bilaterally. Absent: respiratory distress, wheezes, rales, rhonchi, stridor Cardiovascular Exam: Present: regular rate, normal rhythm, normal heart sounds. Absent: systolic murmur, diastolic murmur, rubs, gallop, clicks GI/Abdominal exam: Present: soft, normal bowel sounds. Absent: distended, tenderness, guarding, rebound, rigid Extremities exam: Present: normal inspection, full ROM, normal capillary refill. Absent: tenderness, pedal edema, joint swelling, calf tenderness Back exam: Present: normal inspection Neurological exam: Present: alert, oriented X3, CN II-XII intact Psychiatric exam: Present: normal affect, normal mood Skin exam: Present: warm, dry, intact, normal color. Absent: rash Course Vital Signs 08/12/19 08:59 Temperature 97.9 F Pulse Rate 72 Respiratory 18 Rate Blood Pressure 127/72 O2 Sat by Pulse 95 Oximetry Medical Decision Making - Medical Decision Making 28-year-old female presents for x-rays a general anesthetic, fever cough and upper a story symptoms. This time patient's labs were negative for the testing. She is to the lungs. I discussed the patient's daughter is also being treated for breast infection. Discussed possibly viral but and Patient can continue Motrin Tylenol. Discussed if symptoms worsen or productive cough becomes worse in productivity she can start azithromycin. Questions were answered return parameters were discussed. - Lab Data Lab Results 08/12/19 Range/Units 09:15 Influenza Type A RNA Not Detected (Not Detectd) Influenza Type B (PCR) Not Detected (Not Detectd) Disposition Clinical Impression: URI (upper respiratory infection) Disposition: HOME SELF-CARE Condition: Stable Instructions (If sedation given, give patient instructions): Upper Respiratory Infection (ED) Additional Instructions: Please use medication as discussed. Please follow up with family doctor if symptoms have not improved over the next two days. Please return to the emergency room if your symptoms increase or worsen or for any other concerns. Prescriptions: Fluticasone Propionate [Flonase Allergy Relief] 1 spray EA NOSTRIL TID #9.9 ml Ibuprofen [Motrin] 600 mg PO Q6HR PRN #20 tab PRN Reason: Pain Azithromycin [Zithromax Z-pack] 0 mg PO DIRECTED #6 tab Is patient prescribed a controlled substance at d/c from ED?: No Referrals: Radha Wiley MD [Primary Care Provider] - 1-2 days Time of Disposition: 10:33
== END 2019-08-12 10:55 | disposition home or self-care (01) ==
LOC: EC 08:47
DX: J06.9 Acute upper respiratory infection, unspecified (principal); F17.200 Nicotine dependence, unspecified, uncomplicated; Z88.0 Allergy status to penicillin; Z86.14 Personal history of Methicillin resistant Staphylococcus aureus infection
CPT/HCPCS: 87502; 99284